=== PATIENT | male | born 1980 | race Caucasian/White ===

== ENCOUNTER 2022-05-08 08:00 | Outpatient (CLI) | payer OTHER | END 2022-05-08 23:59 | disposition home or self-care (01) | LOC: LAB.R 08:00 | PROVIDERS: ATTEND Urology | DX: Z30.2 Encounter for sterilization (principal) | CPT/HCPCS: 81599; 89321 ==

== ENCOUNTER 2022-11-22 10:01 | Day surgery (SDC) | payer OTHER ==
[2022-11-22] MEDS ORDERED: LACTATED RINGERS 1,000 ML IV ONE ×2 (10:17→13:12)
[2022-11-22] MEDS ORDERED: BUPIVACAINE 0.5% PF 30 ML VIAL ONE ×2 (10:30→12:43)
[2022-11-22] MEDS ORDERED: LIDOCAINE OINTMENT 5% 35.44 GM TUBE ONE (10:31)
--- NOTE | 2022-11-22 11:41 | ANESTHESIA ---
Pre-Anesthesia VS, & Labs - Diagnosis symptomatic hemorrhoids, anal fissure - Procedure excisional hemorrhoidectomy Vital Signs: Temp Pulse Resp BP Pulse Ox O2 Flow Rate 36 C L 80 16 145/77 H 97 11/22/22 10:20 11/22/22 10:20 11/22/22 10:20 11/22/22 10:20 11/22/22 10:20 Height: 5 ft 9 in Weight (kg): 109 kg Body Mass Index: 35.4 BMI Classification: Obese - NPO >8 hours (f) Home Medications and Allergies Home Medications: Ambulatory Orders Dextroamphetamine/Amphetamine [Adderall 15 mg Tablet] 15 mg PO DAILY 11/13/22 QUEtiapine [SEROquel] 100 mg PO QPM 11/13/22 Dextroamphetamine/Amphetamine [Adderall 15 mg Tablet] 15 mg PO DAILY 11/13/22 QUEtiapine [SEROquel] 100 mg PO QPM 11/13/22 Allergies/Adverse Reactions: Allergies Allergy/AdvReac Type Severity Reaction Status Date / Time No Known Drug Allergies Allergy Verified 11/13/22 13:01 Anes History & Medical History - Anesthetic History Anesthesia Complications: reports: No previous complications - Medical History Cardiovascular: reports: None Pulmonary: reports: None Gastrointestinal: reports: None Urinary: reports: None Neuro: reports: None Musculoskeletal: reports: None Endocrine/Autoimmune: reports: None Skin: reports: None Smoking Status: Former smoker (quit 10 years ago) Psychosocial: reports: No issues indicated, Other (ADHD) History of Cancer?: No - Surgical History Orthopedic: reports: Other Exam General: Alert, Oriented x3, Cooperative, No acute distress Dental: WNL Mouth Openin Fingerbreadth Neck Mobility: Normal Mallampati classification: II Thyromental Distance: 4-6 cm Mental/Cognitive Status: Alert/Oriented X3, Normal for patient Plan Anesthesia Type: General Consent for Procedure(s) Verified and Reviewed: Yes Code Status: Attempt Resuscitation ASA classification: 2-Mild systemic disease Is this case an emergency?: No
[2022-11-22] MEDS ORDERED: HYDROmorphone 0.5 MG/0.5 ML SYRINGE IVP PRN ×2 (11:42→13:31)
[2022-11-22] MEDS ORDERED: ONDANSETRON 4 MG/2 ML VIAL IVP PRN ×2 (11:42→13:31)
[2022-11-22] MEDS ORDERED: MORPHINE 2 MG/ML CARPUJECT IVP PRN (11:42)
[2022-11-22] MEDS ORDERED: fentaNYL 100 MCG/2 ML VIAL IVP PRN (11:42)
[2022-11-22] MEDS ORDERED: NALOXONE 0.4 MG/ML VIAL IVP PRN (11:42)
[2022-11-22] MEDS ORDERED: ATROPINE ABBOJECT 1 MG/10 ML SYRINGE IVP PRN (11:42)
[2022-11-22] MEDS ORDERED: MIDAZOLAM 2 MG/2 ML VIAL ONE (11:50)
[2022-11-22] MEDS ORDERED: PROPOFOL 200 MG/20 ML VIAL IVP ONE (11:50)
[2022-11-22] MEDS ORDERED: fentaNYL 100 MCG/2 ML VIAL ONE (11:50)
[2022-11-22] MEDS ORDERED: SEVOFLURANE 250 ML LIQUID INH ONE (11:56)
[2022-11-22] MEDS ORDERED: LACTATED RINGERS 1,000 ML IV SCH (12:00)
[2022-11-22] MEDS ORDERED: BUPIVACAINE 0.5% PF 30 ML VIAL INFIL ONE ×2 (12:09)
[2022-11-22] MEDS ORDERED: LIDOCAINE JELLY 2% 6 ML JEL.PF.APP ONE ×2 (12:42)
--- NOTE | 2022-11-22 13:21 | OPERATIVE REPORT ---
Operative Report - General Procedure Date: 11/22/22 Planned Procedure: Exam under anesthesia, anal dilation, fissurectomy, excision internal and external hemorrhoids Pre-Op Diagnosis: Symptomatic anal fissure, and internal/external hemorrhoids Procedure Performed: Exam under anesthesia, anal dilation, anal fissurectomy, excision of internal and external hemorrhoids x2 Post Op Diagnosis: Same - Procedure Note Primary Surgeon: Raul Stone MD Anesthesia Provider: Ethel Gibbs CRNA Anesthesia Technique: General ET tube, Local (54 mL of half percent Marcaine) Pathology: 2 hemorrhoidal complexes internal and external to pathology. IV Fluids (mL): 550 Estimated Blood Loss (mL): 5 Drain/Tube Type: Other (None.) Indications: As above. Complications: None. - Other Other Information/Narrative: After verbal and written informed consent was obtained detailing the operation, the alternatives the operation including no operation, risks of infection, bleeding requiring transfusion with its risks, nerve injury, and and after I met with the patient confirming the surgery and the site of surgery, the patient was brought to the operative suite and placed supine on the operating table. Great care was taken to avoid pressure points to prevent pressure necrosis or nerve injury. Monitoring devices were applied. Ethel Gibbs CRNA sedated and anesthetized the patient for the entire procedure. The patient was then placed in prone jackknife position and prepped and draped in the usual sterile manner. Again, great care was taken to avoid pressure points to prevent pressure necrosis or nerve injury. A "time in" then confirmed that the patient was identified with 3 identifiers (name, date, and medical record number), the history and physical was updated and in the chart, the signed consent confirming the procedure was in the chart, the patient was in the correct position, the aforementioned prophylactic measures were in place or given, we had the correct personnel and equipment to complete the procedure and that anesthesia and the surgical team were given an opportunity to express any concerns. With the agreement of everyone in the room we proceeded with the operation. The perianal skin was injected in a circumferential manner using half percent Marcaine to ensure prison anesthesia. Digital rectal examination was done progressively from 1 to 3 fingers gently to dilate the area. 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 The hemorrhoids as they were larger than previously and were inflamed due to trying to keep the area clean were excised using serial application of a harmonic scalpel. The fissure were excised using Bovie electrocautery. Once this was complete hemostasis was noted to be present and although there were other hemorrhoidal columns they were markedly smaller and I do not excise more than 2 hemorrhoidal columns at the time to help prevent anal stricture. As such there was no other significant anal or distal rectal pathology noted. A Gelfoam roll was come constructed using Gelfoam and lidocaine jelly and inserted into the patient's anus for long-term pain control as well as to absorb any blood that may be present. An ABD was placed exteriorly. At this point a timeout was performed that confirmed that all counts were correct x2, the procedure that was performed, the blood loss, the IV fluids administered, the patient's condition, and any concerns of the operating team had. Having tolerated the procedure well, the patient was taken recovery room in good and stable condition. The plan is for outpatient discharge when the patient is adequately recovered. CPT 71073 (hemorrhoidectomy, internal and external, complex or extensive, with fissurectomy) This document was created in part using voice recognition technology. Because of the inherent limitations of the system, occasional same sounding word substitutions and grammatical errors do occur and persist despite proofreading. Please read this document for content.
[2022-11-22] MEDS ORDERED: LIDOCAINE JELLY 2% 6 ML JEL.PF.APP UR ONE (13:28)
[2022-11-22] MEDS ORDERED: HYDROcod/ACETAM 5/325 MG TABLET PO PRN (13:31)
[2022-11-22] MEDS ORDERED: HYDROcod/ACETAM 5/325 MG TABLET ONE (13:48)
[2022-11-22 14:20] VITALS: BP 128/72
--- NOTE | 2022-11-23 16:04 | ANESTHESIA POST OP EVALUATION ---
Anesthesia Post Eval - Post Anesthesia Eval Vitals: Last Vital Signs Temp 36.4 C L 11/22/22 14:19 Pulse 74 11/22/22 14:19 Resp 16 11/22/22 14:19 BP 128/72 11/22/22 14:19 Pulse Ox 98 11/22/22 14:19 O2 Flow Rate CV Function Including HR & BP: Stable Pain Control: Satisfactory Nausea & Vomiting: Negative Mental Status: Baseline Respiratory Status: Airway Patent Hydration Status: Satisfactory Anesthesia Complications: None
== END 2022-11-22 10:02 | disposition home or self-care (01) ==
LOC: SDS 10:01
PROVIDERS: ATTEND Surgery
PROC: 06BY3ZC Excision of Hemorrhoidal Plexus, Percutaneous Approach (ICD-10-PCS; principal; 2022-11-22 11:30)
DX: K64.8 Other hemorrhoids (principal); K64.4 Residual hemorrhoidal skin tags; K60.2 Anal fissure, unspecified; E66.9 Obesity, unspecified; Z68.35 Body mass index [BMI] 35.0-35.9, adult; Z87.891 Personal history of nicotine dependence
CPT/HCPCS: 46261; A9270; J3490; J7120

== ENCOUNTER 2023-05-02 07:07 | Outpatient (CLI) | payer OTHER ==
[2023-05-02 15:03] LABS: BASOPHILS # (AUTO) 0.1 10^3/uL (0.0-0.1); BASOPHILS % (AUTO) 0.8 %; EOSINOPHILS # (AUTO) 0.1 10^3/uL (0.0-0.7); HCT - HEMATOCRIT 47.7 % (42.0-52.0); HGB - HEMOGLOBIN 14.8 g/dL (14.0-18.0); LYMPHOCYTES # (AUTO) 2.1 10^3/uL (1.5-3.5); LYMPHOCYTES % (AUTO) 33.3 %; MEAN CORPUSCULAR HEMOGLOBIN 29.8 pg (27.0-31.0); MEAN CORPUSCULAR VOLUME 96.2 fL (80.0-94.0); MEAN PLATELET VOLUME 9.8 fL (7.4-11.4); MONOCYTES # (AUTO) 0.6 10^3/uL (0.0-1.0); MONOCYTES % (AUTO) 9.1 %; NEUTROPHILS # (AUTO) 3.5 10^3/uL (1.5-6.6); NEUTROPHILS % (AUTO) 54.5 %; PLT - PLATELET COUNT 204 10^3/uL (130-450); RED BLOOD COUNT 4.96 10^6/uL (4.70-6.10); RED CELL DISTRIBUTION WIDTH 12.6 % (12.0-15.0); WHITE BLOOD COUNT 6.4 x10^3/uL (4.8-10.8)
[2023-05-02 15:29] LABS: ALBUMIN 4.4 g/dL (3.2-5.5); ALBUMIN/GLOBULIN RATIO 1.7 (1.0-2.2); ALKALINE PHOSPHATASE 51 IU/L (42-121); ALT ALANINE AMINOTRANSFERASE 42 IU/L (10-60); AST ASPARTATE AMINOTRANSFERASE 34 IU/L (10-42); BILIRUBIN,TOTAL 0.8 mg/dL (0.2-1.0); BUN - BLOOD UREA NITROGEN 17 mg/dL (6-20); CALCIUM 9.2 mg/dL (8.5-10.3); CARBON DIOXIDE - CO2 26 mmol/L (21-32); CHLORIDE 103 mmol/L (101-111); CHOLESTEROL 253 mg/dL; GFR - MDRD 82 (>89); GLUCOSE 107 mg/dL (74-104); HDL CHOLESTEROL 36 mg/dL; POTASSIUM 4.2 mmol/L (3.5-4.5); SODIUM 135 mmol/L (135-145); TRIGLYCERIDES 583 mg/dL (48-352)
[2023-05-02 15:33] LABS: THYROID STIMULATING HORMONE 2.79 uIU/mL (0.34-5.60)
[2023-05-02 15:45] LABS: LDL CHOLESTEROL,DIRECT 131 mg/dL (75-193); LDLD/HDL RATIO 3.6 (<3.6)
[2023-05-02 21:17] LABS: ESTIMATED AVERAGE GLUCOSE 128 mg/dL (70-100); HEMOGLOBIN A1c% 6.1 % (4.27-6.07)
== END 2023-05-02 07:08 | disposition home or self-care (01) ==
LOC: LAB.S 07:07
PROVIDERS: ATTEND Internal Medicine
DX: J20.9 Acute bronchitis, unspecified (principal); Z13.220 Encounter for screening for lipoid disorders; Z79.899 Other long term (current) drug therapy; K64.2 Third degree hemorrhoids; R33.9 Retention of urine, unspecified; R30.0 Dysuria; R73.01 Impaired fasting glucose; J32.9 Chronic sinusitis, unspecified; F39 Unspecified mood [affective] disorder; F90.9 Attention-deficit hyperactivity disorder, unspecified type; B02.9 Zoster without complications; M54.9 Dorsalgia, unspecified; F17.200 Nicotine dependence, unspecified, uncomplicated; R10.84 Generalized abdominal pain; K42.9 Umbilical hernia without obstruction or gangrene; R51.9 Headache, unspecified
CPT/HCPCS: 36415; 80053; 80061; 83036; 83721; 84443; 85025